=== PATIENT | male | born 1960 | race African-American/Black ===

== ENCOUNTER 2021-09-14 01:06 | Emergency (ER) | payer MEDICAID, SELFPAY ==
[2021-09-14 01:12] VITALS: BP 178/119; PULSE 84; RESP 21; TEMP 36.6; O2SAT 96; BMI 22.4
--- NOTE | 2021-09-14 01:22 | EDS_ITS ---
HPI History of Present Illness Chief Complaint: Hypertension Informant: patient Onset/Context/Timing Onset: Today Context: Gradual Onset Timing: Intermittent Quality: dizzy Location: head Current Severity: Mild Maximum Severity: Moderate Worsened by: walking Relieved by: resting Associated Symptoms Associated Symptoms: Mild intermittent blurry vision when dizzy Narrative Narrative: Patient has history of high blood pressure and takes HCTZ 25 mg daily for it. Last week his doctor added a new medication, he cannot remember what it is, but it was because his blood pressure was high like this, with systolics in the 160s or so, and diastolics that are over 100. He lives in the [facility], and came up here to help his sister move today, but forgot his blood pressure medication so he has not had it all day. He started feeling dizzy, similar to when his blood pressure would go up in the past, but it felt worse so he presents to the emergency department. He denies any focal peripheral neurologic symptoms. He has been able to walk without difficulty. No chest pain, shortness of breath, presyncope or syncope. He states the dizziness is lightheaded at times and other times feels like he is spinning a little. No history of stroke. Takes no anticoagulants. PFSH PFSH Medical History Anxiety Chest pain Depression Hypertension Smoker Home Medications alprazolam [Xanax] 1 mg PO TID 09/14/21 [History Last Taken Unknown] hydrochlorothiazide 25 mg PO DAILY 09/14/21 [History Last Taken Unknown] venlafaxine [Effexor] 25 mg PO BID 09/14/21 [History Last Taken Unknown] Allergy/AdvReac Type Severity Reaction Status Date / Time acetaminophen [From Vicodin] Allergy Other Verified 09/14/21 01:12 hydrocodone [From Vicodin] Allergy Other Verified 09/14/21 01:12 ibuprofen [From Motrin] Allergy Other Verified 09/14/21 01:12 morphine Allergy Shortness Verified 09/14/21 01:12 of breath Social History Smoking Status: Current every day smoker tobacco type: cigarettes ROS ROS ED Constitutional Constitutional ED: Denies chills or fever(s) Eyes Eyes: Reports blurry vision bilateral (off and on; currently at baseline); Denies diplopia ENT ENT ED: Denies rhinorrhea or sore throat Cardiovascular Cardiovascular: Denies chest pain or palpitations Respiratory/Chest Respiratory/Chest: Denies cough or dyspnea Gastrointestinal Gastrointestinal: Denies abdominal pain, diarrhea, nausea or vomiting Genitourinary Genitourinary ED: Denies dysuria or hematuria Musculoskeletal Musculoskeletal: Denies back pain or neck pain Integumentary Denies abscess or rash Neurologic Neurologic: Reports dizziness; Denies headache(s), paresthesias or weakness Psychiatric Psychiatric: Denies anxiety or suicidal thoughts EXAM Physical Exam Const Vital Signs: 09/14/21 01:12 09/14/21 01:16 09/14/21 01:37 Temperature 97.8 F Temperature Source Oral Pulse Rate 84 88 Respiratory Rate 21 H 19 H Respiratory Effort Normal Respiratory Pattern Normal Blood Pressure 178/119 H 184/144 H Blood Pressure Mean 138 157 Pulse Ox 96 98 Oxygen Delivery Method Room Air Room Air 09/14/21 02:19 Temperature Temperature Source Pulse Rate Respiratory Rate Respiratory Effort Respiratory Pattern Blood Pressure 162/106 H Blood Pressure Mean 124 Pulse Ox Oxygen Delivery Method Positive well nourished and well developed General Appearance ED: well developed and NAD HEENT Reports moist mucous membranes normocephalic and atraumatic Throat: posterior oropharynx normal Eyes PERRL and EOMs intact bilaterally Neck full ROM, no lymphadenopathy, supple and no meningeal signs Resp normal respiratory effort and clear to auscultation bilaterally Cardio regular rate, regular rhythm and no murmurs Rate: Negative for bradycardia or tachycardic GI non-tender and non-distended Auscultation: normoactive bowel sounds Palpation: soft Back/Spine no CVA tenderness General Back: other FROM Extremity normal to inspection General Extremety ED: Negative for edema, pulses abnormal or tenderness General Extremity: Negative for edema or pulses abnormal Neuro oriented x3, CN's II-XII intact bilaterally, no sensory deficits noted and deep tendon reflexes 2+ bilaterally Neuro Narrative: Normal [id number] and [id number] bilaterally. No clonus. Sensorium / Orientation: awake and alert Motor Exam: strength 5/5 throughout Skin no rashes or lesions noted and no wounds MDM MDM MDM Narrative Medical decision making narrative: Patient was given his daily HCTZ 25 mg in addition to clonidine 0.2 mg. After an hour or 2 of observation on reexamination his blood pressure came down to 133/85 and he is feeling better. I do not think he is having a stroke nor do I think he needs any further emergent work-up right now, he is advised to continue with medication and follow-up with his doctor when he gets back home. He is comfortable with that plan. Discharge Plan Triage Chief Complaint: Hypertension ED Provider: Lico Hancock Dx/Rx/DC Orders Clinical Impression: Accelerated hypertension Instructions: Controlling High Blood Pressure Prescriptions: No Action hydrochlorothiazide 25 mg Tablet 25 mg PO DAILY RF: 0 alprazolam [Xanax] 1 mg Tablet 1 mg PO TID RF: 0 venlafaxine [Effexor] 25 mg Tablet 25 mg PO BID RF: 0 Referrals: MELODY SAL [Other] - 3-5 Days Disposition Disposition: Home, Self Care
[2021-09-14] MEDS: hydroCHLOROthiazide 25 MG Tablet PO (01:34)
[2021-09-14] MEDS: cloNIDine HCl 0.2 MG Tablet PO (01:34)
[2021-09-14 01:37] VITALS: BP 184/144; PULSE 88; RESP 19; O2SAT 98
[2021-09-14 02:19] VITALS: BP 162/106
[2021-09-14 02:41] VITALS: BP 133/85; PULSE 78; RESP 22; O2SAT 96
== END 2021-09-14 02:49 | disposition home or self-care (01) ==
PROVIDERS: Emergency Provider Emergency Medicine; Visit Provider Emergency Medicine
DX: I10 Essential (primary) hypertension (principal); F17.210 Nicotine dependence, cigarettes, uncomplicated; F41.9 Anxiety disorder, unspecified; F32.A Depression, unspecified
CPT/HCPCS: 99284